=== PATIENT | male | born 2000 | race Caucasian/White ===

== ENCOUNTER 2020-05-24 14:26 | Emergency (ER) | payer OTHER, BC ==
[~2020-05-24] VITALS: Ht 185.4 cm; Wt 115.9 kg
[2020-05-24 14:42] VITALS: BP 126/66
[2020-05-24] MEDS ORDERED: OXYMETAZOLINE HCL 0.05% 15 ML NASAL SPRAY NASAL ONE (15:00)
== END 2020-05-24 15:52 | disposition home or self-care (01) ==
LOC: EMS 14:38
DX: U07.1 COVID-19 (principal); F17.200 Nicotine dependence, unspecified, uncomplicated; F12.90 Cannabis use, unspecified, uncomplicated
CPT/HCPCS: 99283; U0003